=== PATIENT | female | born 1955 | race Caucasian/White ===

== ENCOUNTER 2017-10-06 03:26 | Emergency (ER) | payer MEDICARE ==
[2017-10-06] MEDS ORDERED: ROPINIROLE HCL 2 MG TABLET PO ONE (03:56)
[2017-10-06] MEDS ORDERED: NORMAL SALINE 1000 ML 1,000 ML IV ONE (03:56)
--- NOTE | 2017-10-06 03:57 | ER Document Report ---
ED General - General TRAVEL OUTSIDE OF THE U.S. IN LAST 30 DAYS: No <FLORENCIA GARDNER - Last Filed: 10/06/17 06:30> <CAR NUNN - Last Filed: 10/09/17 11:53> - General Chief Complaint: High Blood Sugar Stated Complaint: BLOOD SUGAR PROBLEMS Time Seen by Provider: 10/06/17 03:46 Notes: Patient is a 62 year old female that comes to the ED by EMS for chief complaint of hyperglycemia, feeling unsteady, and being out of her medications. She states she just got here 3 days ago from [place], moved here to be close to her son, she cannot find her medication bag, she states she has been using her insulin in her carry-on bag but now she is out of that too. She denies vomiting but she does report nausea. She denies chest pain, shortness of breath , headache. Past medical history includes type 1 diabetes, lupus, neuropathy, GERD, RLS. (FLORENCIA GARDNER) - Related Data Allergies/Adverse Reactions: Hymenoptera Allergenic Extract [From Venomil Honey Bee Venom] Allergy (Severe, Verified 09/17/14 02:30) Anaphylaxis cefuroxime axetil [From Ceftin] Allergy (Intermediate, Verified 09/17/14 02:30) Hives ciprofloxacin [From Cipro] Allergy (Mild, Verified 09/17/14 02:30) Hives ciprofloxacin HCl [From Cipro] Allergy (Mild, Verified 09/17/14 02:30) Hives latex [Latex] Allergy (Mild, Verified 09/17/14 02:30) Hives Past Medical History - General Information source: Patient - Social History Smoking Status: Never Smoker Chew tobacco use (# tins/day): No Frequency of alcohol use: None Drug Abuse: None Lives with: Family Family History: Reviewed & Not Pertinent Patient has suicidal ideation: No Patient has homicidal ideation: No - Past Medical History Cardiac Medical History: Reports: Hx Hypertension Endocrine Medical History: Reports: 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 Renal/ Medical History: Denies: Hx Peritoneal Dialysis GI Medical History: Reports: Hx Irritable Bowel Past Surgical History: Reports: Hx Abdominal Surgery, Hx Appendectomy, Hx Cholecystectomy, Hx Orthopedic Surgery - Right total knee replacement, left chest Port-A-Cath - Immunizations Hx Pneumococcal Vaccination: 02/20/12 <FLORENCIA GARDNER - Last Filed: 10/06/17 06:30> Review of Systems - Review of Systems Constitutional: See HPI EENT: No symptoms reported Cardiovascular: No symptoms reported Respiratory: No symptoms reported Gastrointestinal: See HPI Genitourinary: No symptoms reported Female Genitourinary: No symptoms reported Musculoskeletal: No symptoms reported Skin: No symptoms reported Hematologic/Lymphatic: No symptoms reported Neurological/Psychological: See HPI <FLORENCIA GARDNER - Last Filed: 10/06/17 06:30> Physical Exam <FLORENCIA GARDNER - Last Filed: 10/06/17 06:30> <CAR NUNN - Last Filed: 10/09/17 11:53> - Vital signs Vitals: Resp 14 10/06/17 05:39 - Notes Notes: GENERAL: Alert, interacts well. Very frail HEAD: Normocephalic, atraumatic. EYES: Pupils equal, round, and reactive to light. Extraocular movements intact. ENT: Oral mucosa moist, tongue midline. [Nares patent, no nasal septal hematoma , TM's intact.] NECK: Full range of motion. Supple. Trachea midline. LUNGS: Clear to auscultation bilaterally, no wheezes, rales, or rhonchi. No respiratory distress. HEART: Regular rate and rhythm. No murmur ABDOMEN: Soft, non-tender. Non-distended. Bowel sounds present in all 4 quadrants. EXTREMITIES: Moves all 4 extremities spontaneously. No edema, normal radial and dorsalis pedis pulses bilaterally. No cyanosis. BACK: no cervical, thoracic, lumbar midline tenderness. No saddle anesthesia, normal distal neurovascular exam. NEUROLOGICAL: Alert and oriented x3. Normal speech. [cranial nerves II through XII grossly intact]. PSYCH: Normal affect, normal mood. SKIN: Warm, dry, normal turgor. No rashes or lesions noted. (FLORENCIA GARDNER) Course - Laboratory Result Diagrams: 10/06/17 03:39 10/06/17 03:39 <FLORENCIA GARDNER - Last Filed: 10/06/17 06:30> - Laboratory Result Diagrams: 10/06/17 03:39 10/06/17 03:39 <CAR NUNN - Last Filed: 10/09/17 11:53> - Re-evaluation Re-evalutation: Patient not tachycardic, not vomiting, she appears well other than appearing chronically frail. She is out of her medications. CBC generally unremarkable, CMP shows hyperglycemia but bicarbonate and anion gap are normal. Venous blood gas does not show acidosis. LFTs are mildly elevated, I discussed this with patient, she states this is the number range that they always are in. She has no abdominal pain on my exam. Patient given her Requip, IV fluids, insulin. Reevaluated patient, patient states she feels great now, no nausea, no lightheadedness, states she feels normal. Requesting relief. Requesting refills of her medications and referral to primary care. Has not provided a urine yet but no urinary symptoms, fever, vomiting. Normal abdominal exam, no CVA tenderness. Patient was given prescriptions, instructed close follow-up, discussed return precautions. Patient states satisfaction and agreement. ( FLORENCIA GARDNER) 10/09/17 11:53 [facility] pharmacy called for clarification of Requip and insulin prescription. Will make insulin sliding scale with meals. Explained pharmacy I do not know the patient's past medical history and cannot provide any further information about the dosing of the Requip. (CAR NUNN) - Vital Signs Vital signs: Temp Pulse Resp BP Pulse Ox 16 163/88 H 100 10/06/17 06:46 10/06/17 06:46 10/06/17 06:46 - Laboratory Laboratory results interpreted by me: 10/06/17 10/06/17 10/06/17 03:39 03:39 06:46 MCV 101 H Glucose 463 H* POC Glucose 278 H Calcium 7.9 L AST 43 H ALT 71 H Alkaline Phosphatase 140 H Total Protein 5.9 L Albumin 2.9 L Discharge <FLORENCIA GARDNER - Last Filed: 10/06/17 06:30> <CAR NUNN - Last Filed: 10/09/17 11:53> - Discharge Clinical Impression: Has run out of medications, Hyperglycemia due to type 1 diabetes mellitus Disposition: HOME, SELF-CARE Additional Instructions: Fill and take your medications as prescribed. Call and follow-up closely with primary care for additional evaluation and management. Return if you worsen including vomiting, dizziness, or any other concerning or worsening symptoms. Prescriptions: Gabapentin 300 mg PO QHS #30 capsule Insulin Aspart [Novolog Insulin 100 Unit/1 ml 10 ml] 0 unit SUBCUT .SLD SCALE # 10 ml Insulin Glargine,Hum.rec.anlog [Lantus Insulin Inj 300 Unit/3 ml Pen] 24 unit SUBCUT BID #10 ml Ropinirole HCl [Requip 2 Mg Tablet] 4 mg PO BID PRN #60 tablet PRN Reason: Referrals: LEAH NELSON MD [ACTIVE STAFF] - Follow up in 1 week LOULOU LAROSE MD [ACTIVE STAFF] - Follow up in 1 week
[2017-10-06 04:15] LABS: ABSOLUTE BASOPHILS # (AUTO) 0.1 10^3/uL (0.0-0.2); ABSOLUTE EOSINOPHILS # (AUTO) 0.1 10^3/uL (0.0-0.6); ABSOLUTE MONOCYTES (AUTO) 0.6 10^3/uL (0.1-1.4); ABSOLUTE NEUT (AUTO) 3.7 10^3/uL (1.7-8.2); BASOPHILS % (AUTO) 1.4 % (0-2); EOSINOPHILS % (AUTO) 1.6 % (0-6); HEMATOCRIT 39.5 % (36.0-47.0); HEMOGLOBIN 12.9 g/dL (12.0-15.5); LYMPHOCYTES % (AUTO) 30.7 % (13-45); MEAN CORPUSCULAR HEMOGLOBIN 33.1 pg (27.0-33.4); MEAN CORPUSCULAR HGB CONC 32.7 g/dL (32.0-36.0); MEAN CORPUSCULAR VOLUME 101 fl (80-97); MONOCYTES % (AUTO) 9.3 % (3-13); PLATELET COUNT 167 10^3/uL (150-450); RED CELL DISTRIBUTION WIDTH 13.7 % (11.5-14.0); TOTAL CELLS COUNTED % (AUTO) 100 %; WHITE BLOOD COUNT 6.4 10^3/uL (4.0-10.5)
[2017-10-06 04:19] LABS: ALANINE AMINOTRANSFERASE 71 U/L (9-52); ALBUMIN 2.9 g/dL (3.5-5.0); ALKALINE PHOSPHATASE 140 U/L (38-126); ANION GAP 9 (5-19); ASPARTATE AMINO TRANSFERASE 43 U/L (14-36); BILIRUBIN,DIRECT 0.3 mg/dL (0.0-0.4); BILIRUBIN,TOTAL 1.3 mg/dL (0.2-1.3); BLOOD UREA NITROGEN 12 mg/dL (7-20); CALCIUM 7.9 mg/dL (8.4-10.2); CARBON DIOXIDE 25 mmol/L (22-30); CHLORIDE 105 mmol/L (98-107); POTASSIUM 4.3 mmol/L (3.6-5.0); SODIUM 138.7 mmol/L (137-145); TOTAL PROTEIN 5.9 g/dL (6.3-8.2)
[2017-10-06 04:30] LABS: GLUCOSE 463 mg/dL (75-110)
[2017-10-06] MEDS ORDERED: INSULIN REG, HUMAN 100 UNIT/ML 3 ML VIAL (PYX) SUBCUT ONE (04:40)
[2017-10-06 04:44] LABS: VENOUS BLOOD BASE EXCESS -4.5 mmol/L; VENOUS BLOOD HCO3 21.2 mmol/L (20-32); VENOUS BLOOD PCO2 41.4 mmHg (35-63); VENOUS BLOOD PH 7.33 (7.30-7.42)
[2017-10-06] MEDS ORDERED: ROPINIROLE HCL 2 MG TABLET ONE (05:33)
[2017-10-06 06:49] VITALS: BP 163/88
== END 2017-10-06 06:55 | disposition home or self-care (01) ==
LOC: ER 03:26
DX: E10.65 Type 1 diabetes mellitus with hyperglycemia (principal); T38.3X6A Underdosing of insulin and oral hypoglycemic [antidiabetic] drugs, initial encounter; E10.40 Type 1 diabetes mellitus with diabetic neuropathy, unspecified; T42.6X6A Underdosing of other antiepileptic and sedative-hypnotic drugs, initial encounter; G25.81 Restless legs syndrome; T42.8X6A Underdosing of antiparkinsonism drugs and other central muscle-tone depressants, initial encounter; Z91.128 Patient's intentional underdosing of medication regimen for other reason; Z91.14 Patient's other noncompliance with medication regimen; R11.0 Nausea; R79.89 Other specified abnormal findings of blood chemistry; Z88.1 Allergy status to other antibiotic agents; Z91.040 Latex allergy status; Z87.892 Personal history of anaphylaxis; Z90.410 Acquired total absence of pancreas
CPT/HCPCS: 99284; 96360; 36415; 82962; 85025; 80053; 82803; A9270 ×2; J7030; J1815

== ENCOUNTER 2017-11-16 14:50 | Emergency (ER) | payer MEDICARE ==
[2017-11-16] MEDS ORDERED: FUROSEMIDE 40 MG TABLET PO ONE (15:40)
--- NOTE | 2017-11-16 15:47 | ER Document Report ---
ED Medical Screen (RME) - General TRAVEL OUTSIDE OF THE U.S. IN LAST 30 DAYS: No - General Chief Complaint: High Blood Sugar Stated Complaint: SWELLING Time Seen by Provider: 11/16/17 15:39 Notes: 62 years old female with history of congestive heart failure, on torsemide, has not been taking for a week, started swelling up over the lower extremity had some difficulty in breathing and coughing on and off. No chest pain. She also been constipated for the last several days. Nauseous no vomiting. Has a long history of congestive heart failure, pancreatic transplant, sphincter of Oddi dysfunction On examination-bilateral lower lobe inspiratory crackles were heard, bilateral lower leg edema left is more than the right (JENNIFER STEVE) - Related Data Allergies/Adverse Reactions: Hymenoptera Allergenic Extract [From Venomil Honey Bee Venom] Allergy (Severe, Verified 11/16/17 14:52) Anaphylaxis cefuroxime axetil [From Ceftin] Allergy (Intermediate, Verified 11/16/17 14:52) Hives ciprofloxacin [From Cipro] Allergy (Mild, Verified 11/16/17 14:52) Hives ciprofloxacin HCl [From Cipro] Allergy (Mild, Verified 11/16/17 14:52) Hives latex [Latex] Allergy (Mild, Verified 11/16/17 14:52) Hives Past Medical History - Social History Chew tobacco use (# tins/day): No Frequency of alcohol use: recovery x 27 yrs Drug Abuse: None - Past Medical History Cardiac Medical History: Reports: Hx Hypertension Endocrine Medical History: Reports: 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, Hx Diabetes Mellitus Type 2 Renal/ Medical History: Denies: Hx Peritoneal Dialysis GI Medical History: Reports: Hx Irritable Bowel Past Surgical History: Reports: Hx Abdominal Surgery, Hx Appendectomy, Hx Cholecystectomy, Hx Orthopedic Surgery - Right total knee replacement, left chest Port-A-Cath - Vital signs Vitals: Temp Pulse Resp BP Pulse Ox 98.1 F 80 18 178/99 H 97 11/16/17 15:05 11/16/17 15:05 11/16/17 15:05 11/16/17 15:05 11/16/17 15:05 - Vital Signs Vital signs: Temp Pulse Resp BP Pulse Ox 98.1 F 80 18 178/99 H 97 11/16/17 15:05 11/16/17 15:05 11/16/17 15:05 11/16/17 15:05 11/16/17 15:05 - Laboratory Laboratory results interpreted by me: 11/16/17 15:29 POC Glucose 197 H
--- NOTE | 2017-11-16 16:14 | ER Document Report ---
ED General - General Chief Complaint: High Blood Sugar Stated Complaint: SWELLING Time Seen by Provider: 11/16/17 15:39 Mode of Arrival: Ambulatory Information source: Patient Notes: 62-year-old female with a history of congestive heart failure presents the emergency department with complaints of some difficulty breathing and increased swelling. Patient states that she is on toresmide. She states that she just moved here from [place]. She ran out of her medication a week ago and contacted her primary care physician in [place] for a refill. He declined to refill the medication as she is no longer living in [place]. Patient states that she has not followed up with a primary care physician yet in this area. She is having some shortness of breath but denies chest pain. She also denies calf pain. Patient has had blood clots in her L arm requiring anticoagulation. She says the anticoagulation was stopped a year ago. TRAVEL OUTSIDE OF THE [place] IN LAST 30 DAYS: No - HPI Onset: Last week Onset/Duration: Gradual Quality of pain: No pain Severity: Mild Associated symptoms: Shortness of breath Exacerbated by: Denies Relieved by: Denies Similar symptoms previously: Yes Recently seen / treated by doctor: No - Related Data Allergies/Adverse Reactions: Hymenoptera Allergenic Extract [From Venomil Honey Bee Venom] Allergy (Severe, Verified 11/16/17 14:52) Anaphylaxis cefuroxime axetil [From Ceftin] Allergy (Intermediate, Verified 11/16/17 14:52) Hives ciprofloxacin [From Cipro] Allergy (Mild, Verified 11/16/17 14:52) Hives ciprofloxacin HCl [From Cipro] Allergy (Mild, Verified 11/16/17 14:52) Hives latex [Latex] Allergy (Mild, Verified 11/16/17 14:52) Hives Past Medical History - Social History Smoking Status: Former Smoker Chew tobacco use (# tins/day): No Frequency of alcohol use: recovery x 27 yrs Drug Abuse: None Family History: Reviewed & Not Pertinent Patient has suicidal ideation: No Patient has homicidal ideation: No - Past Medical History Cardiac Medical History: Reports: Hx Hypertension Endocrine Medical History: Reports: 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, Hx Diabetes Mellitus Type 2 Renal/ Medical History: Denies: Hx Peritoneal Dialysis GI Medical History: Reports: Hx Irritable Bowel Past Surgical History: Reports: Hx Abdominal Surgery, Hx Appendectomy, Hx Cholecystectomy, Hx Orthopedic Surgery - Right total knee replacement, left chest Port-A-Cath - Immunizations Hx Pneumococcal Vaccination: 02/20/12 Review of Systems - Review of Systems Constitutional: No symptoms reported EENT: No symptoms reported Cardiovascular: No symptoms reported Respiratory: Short of breath Gastrointestinal: No symptoms reported Genitourinary: No symptoms reported Musculoskeletal: Leg swelling, Ankle swelling Skin: No symptoms reported Neurological/Psychological: No symptoms reported -: Yes All other systems reviewed and negative Physical Exam - Vital signs Vitals: Temp Pulse Resp BP Pulse Ox 98.1 F 80 18 178/99 H 97 11/16/17 15:05 11/16/17 15:05 11/16/17 15:05 11/16/17 15:05 11/16/17 15:05 - Notes Notes: PHYSICAL EXAMINATION: GENERAL: Well-appearing, well-nourished and in no acute distress. HEAD: Atraumatic, normocephalic. EYES: Pupils equal round and reactive to light, extraocular movements intact, conjunctiva are normal. ENT: Nares patent, oropharynx clear without exudates. Moist mucous membranes. NECK: Normal range of motion, supple without lymphadenopathy LUNGS: Crackles bilaterally. No wheezing. HEART: Regular rate and rhythm without murmurs ABDOMEN: Soft, nontender, nondistended abdomen. No guarding, no rebound. No masses appreciated. Female : deferred Musculoskeletal: Normal range of motion, 2+ pitting edema. NEUROLOGICAL: Cranial nerves grossly intact. Normal speech, normal gait. Normal sensory, motor exams PSYCH: Normal mood, normal affect. SKIN: Warm, Dry, normal turgor, no rashes or lesions noted. Course - Re-evaluation Re-evalutation: 11/16/17 18:00 With patient's recent travel from [place], hx of blood clots in her L arm, and shortness of breath, will rule out PE. CT chest ordered. 11/16/17 18:39 CT done. No PE, pneumonia, or effusions. Patient feeling better after getting furosemide in the ED. Has been urinating. Patient feels comfortable with discharge home. I will give her a rx for toresmide. She says she takes 20mg BID. I will give her a weeks supply. She was instructed to follow up with a primary care physician or chemical production machine operator for future refills. I provided referrals for her. I instructed her to return for chest pain or worsening symptoms. 11/16/17 18:45 - Vital Signs Vital signs: Temp Pulse Resp BP Pulse Ox 98.1 F 80 19 178/99 H 100 11/16/17 15:05 11/16/17 15:05 11/16/17 16:05 11/16/17 15:05 11/16/17 16:05 - Laboratory Result Diagrams: 11/16/17 16:40 11/16/17 16:40 Laboratory results interpreted by me: 11/16/17 11/16/17 11/16/17 15:29 15:50 16:40 RBC 3.55 L Hct 35.5 L MCV 100 H MCH 34.0 H Sodium Carbon Dioxide Anion Gap Creatinine Glucose POC Glucose 197 H AST ALT Alkaline Phosphatase NT-Pro-B Natriuret Pep Total Protein Albumin Urine Glucose (UA) 150 H Urine Nitrite POSITIVE H Urine Urobilinogen 2.0 H Ur Leukocyte Esterase TRACE H 11/16/17 11/16/17 16:40 16:40 RBC Hct MCV MCH Sodium 136.6 L Carbon Dioxide 31 H Anion Gap 4 L Creatinine 0.42 L Glucose 139 H POC Glucose AST 39 H ALT 54 H Alkaline Phosphatase 130 H NT-Pro-B Natriuret Pep 1050 H Total Protein 5.7 L Albumin 2.9 L Urine Glucose (UA) Urine Nitrite Urine Urobilinogen Ur Leukocyte Esterase Discharge - Discharge Clinical Impression: Shortness of breath Disposition: HOME, SELF-CARE Instructions: Dyspnea, Nonspecific ([facility]) Prescriptions: Torsemide [Demadex 20 mg Tablet] 20 mg PO BID 7 Days #14 tablet Referrals: ANNIKA ALFONSO MD [ACTIVE STAFF] - Follow up as needed JANETH TAVERA MD [ACTIVE STAFF] - Follow up as needed
--- NOTE | 2017-11-16 16:23 | RADIOLOGY REPORT (SQ) ---
EXAM DESCRIPTION: CHEST 2 VIEWS COMPLETED DATE/TIME: 11/16/2017 4:15 pm REASON FOR STUDY: chf COMPARISON: 09/17/2014. EXAM PARAMETERS: NUMBER OF VIEWS: two views TECHNIQUE: Digital Frontal and Lateral radiographic views of the chest acquired. RADIATION DOSE: NA LIMITATIONS: none FINDINGS: LUNGS AND PLEURA: No opacities, masses or pneumothorax. No pleural effusion. MEDIASTINUM AND HILAR STRUCTURES: No masses or contour abnormalities. HEART AND VASCULAR STRUCTURES: Heart normal size. No evidence for failure. BONES: No acute findings. HARDWARE: Vascular access port. OTHER: No other significant finding. IMPRESSION: NO ACUTE RADIOGRAPHIC FINDING IN THE CHEST. TECHNICAL DOCUMENTATION: JOB ID: [id number] [employer]- All Rights Reserved Reading location - IP/workstation name: [email or web address]
[2017-11-16 16:44] LABS: APPEARANCE,URINE SLIGHTLY-CLOUDY; BILIRUBIN,URINE NEGATIVE (NEGATIVE); COLOR,URINE YELLOW; GLUCOSE, URINE 150 mg/dL (NEGATIVE); KETONES,URINE NEGATIVE (NEGATIVE); LEUKOCYTE ESTERASE,URINE TRACE (NEGATIVE); NITRITE,URINE POSITIVE (NEGATIVE); PROTEIN,URINE NEGATIVE (NEGATIVE); URINE SPECIFIC GRAVITY 1.019
[2017-11-16 16:56] LABS: ABSOLUTE BASOPHILS # (AUTO) 0.1 10^3/uL (0.0-0.2); ABSOLUTE EOSINOPHILS # (AUTO) 0.1 10^3/uL (0.0-0.6); ABSOLUTE MONOCYTES (AUTO) 0.5 10^3/uL (0.1-1.4); ABSOLUTE NEUT (AUTO) 3.1 10^3/uL (1.7-8.2); BASOPHILS % (AUTO) 1.4 % (0-2); EOSINOPHILS % (AUTO) 1.6 % (0-6); HEMATOCRIT 35.5 % (36.0-47.0); HEMOGLOBIN 12.1 g/dL (12.0-15.5); LYMPHOCYTES % (AUTO) 34.2 % (13-45); MEAN CORPUSCULAR HGB CONC 34.1 g/dL (32.0-36.0); MEAN CORPUSCULAR VOLUME 100 fl (80-97); MONOCYTES % (AUTO) 8.6 % (3-13); PLATELET COUNT 206 10^3/uL (150-450); RED BLOOD COUNT 3.55 10^6/uL (3.72-5.28); RED CELL DISTRIBUTION WIDTH 13.5 % (11.5-14.0); SEGMENTED NEUTROPHILS % (AUTO) 54.2 % (42-78); TOTAL CELLS COUNTED % (AUTO) 100 %; WHITE BLOOD COUNT 5.8 10^3/uL (4.0-10.5)
[2017-11-16 17:14] LABS: ALANINE AMINOTRANSFERASE 54 U/L (9-52); ALBUMIN 2.9 g/dL (3.5-5.0); ALKALINE PHOSPHATASE 130 U/L (38-126); ASPARTATE AMINO TRANSFERASE 39 U/L (14-36); BILIRUBIN,DIRECT 0.4 mg/dL (0.0-0.4); BILIRUBIN,TOTAL 1.2 mg/dL (0.2-1.3); BLOOD UREA NITROGEN 9 mg/dL (7-20); CALCIUM 8.5 mg/dL (8.4-10.2); GLUCOSE 139 mg/dL (75-110); POTASSIUM 4.4 mmol/L (3.6-5.0); TOTAL PROTEIN 5.7 g/dL (6.3-8.2)
[2017-11-16 17:20] LABS: CARBON DIOXIDE 31 mmol/L (22-30); CHLORIDE 102 mmol/L (98-107); SODIUM 136.6 mmol/L (137-145)
[2017-11-16 17:24] LABS: ANION GAP 4 (5-19)
--- NOTE | 2017-11-16 18:25 | RADIOLOGY REPORT (SQ) ---
EXAM DESCRIPTION: CTA CHEST COMPLETED DATE/TIME: 11/16/2017 6:12 pm REASON FOR STUDY: shortness of breath COMPARISON: Chest radiograph 11/16/[address] abdomen 09/17/2014 TECHNIQUE: CT scan of the chest performed using helical scanning technique with dynamic intravenous contrast injection. Images reviewed with lung, soft tissue and bone windows. Reconstructed coronal and sagittal MPR images reviewed. Additional 3 dimensional post-processing performed to develop Maximal Intensity Projection images (AL P). All images stored on PACS. All CT scanners at this facility use dose modulation, iterative reconstruction, and/or weight based d osing when appropriate to reduce radiation dose to as low as reasonably achievable (ALARA). [facility]: Dose Right [facility]: CareDose [facility]: Dose Right [facility]: Teradose 4D [facility]: [employer] CONTRAST TYPE AND DOSE: contrast/concentration: Isovue 350.00 mg/ml; Total Contrast Delivered: 66.0 ml; Total Saline Delivered: 75.0 ml Contrast bolus optimized for the pulmonary arteries. Not diagnostic for the aorta. RENAL FUNCTION: BUN 9; creatinine 0.42 RADIATION DOSE: CT Rad equipment meets quality standard of care and radiation dose reduction techniq ues were employed. CTDIvol: 6.6 - 14.3 mGy. DLP: 616 mGy-cm. . LIMITATIONS: None. FINDINGS: LUNGS AND PLEURA: No masses, infiltrates, or pneumothorax. No pleural effusions or pleura l calcifications. AORTA AND GREAT VESSELS: No aneurysm. Contrast bolus not optimized for the aorta. HEART: No pericardial effusion. Moderate to marked coronary artery calcifications. PULMONARY ARTERIES: No emboli visualized in the main pulmonary arteries or the segmental branches. HILAR AND MEDIASTINAL STRUCTURES: No identified masses or abnormal nodes. HARDWARE: None in the chest. UPPER ABDOMEN: Limited exam. Left hepatic lobe pneumobilia is similar to that seen on comparison rufino ging. The gallbladder and spleen are surgically absent. No acute findings. THYROID AND OTHER SOFT TISSUES: No masses. No adenopathy. BONES: No acute or significant finding. 3D MIPS: Confirm above findings. OTHER: No other significant finding. IMPRESSION: No pulmonary emboli. No evidence of acute cardiopulmonary abnormality. COMMENT: Quality ID # [id number]: Final reports with documentation of one or more dose reduction techniques (e.g., Automated exposure control, adjustment of the mA and/or kV according to patient size, use of iterative reconstruction technique) TECHNICAL DOCUMENTATION: JOB ID: [id number] [employer]- All Rights Reserved Reading location - IP/workstation name: [email or web address]
[2017-11-16 19:05] VITALS: BP 197/90
== END 2017-11-16 19:45 | disposition left against medical advice (07) ==
LOC: ER 14:50
DX: R06.02 Shortness of breath (principal); I10 Essential (primary) hypertension; E11.9 Type 2 diabetes mellitus without complications; Z87.891 Personal history of nicotine dependence; Z90.49 Acquired absence of other specified parts of digestive tract; Z96.651 Presence of right artificial knee joint; Z88.3 Allergy status to other anti-infective agents; Z91.040 Latex allergy status
CPT/HCPCS: 36591; 99284; 36415; 82962; 85025; 80053; 81001; 83880; 71046; 71275; A9270

== ENCOUNTER 2018-12-14 12:30 | Emergency (ER) | payer MEDICARE, MEDICAID ==
[2018-12-14] MEDS ORDERED: MORPHINE SULFATE 10 MG/ML INJ IV ONE ×2 (13:19→16:12)
--- NOTE | 2018-12-14 13:26 | ER Document Report ---
ED General - General Chief Complaint: Leg Swelling Stated Complaint: LEG SWELLING Time Seen by Provider: 12/14/18 13:11 TRAVEL OUTSIDE OF THE [place] IN LAST 30 DAYS: No - HPI Notes: Patient is a 63-year-old female who presents to the emergency department for evaluation of leg swelling. She has a complicated medical history, after a femur fracture became complicated by MRSA infection. She has had leg swelling in the past on the right, has been on Lasix for it. She states that normally that works, but over the last 2 weeks she is gained over 10 pounds, her leg edema has gotten worse, and she was sent in for further evaluation. She denies any chest pain or shortness of breath. No fevers or chills. She has pain and pressure in that leg that she rates a 3 out of 5. Nothing seems to make it bett er or worse. She really only got cleared to bear weight on her legs 2 to 3 days ago, and she is largely immobile. He states that her sugars are out of control, but that they always are. She states that since her pancreatomy they range from high to low regularly. - Related Data Allergies/Adverse Reactions: Hymenoptera Allergenic Extract [From Venomil Honey Bee Venom] Allergy (Severe, Verified 11/16/17 14:52) Anaphylaxis cefuroxime axetil [From Ceftin] Allergy (Intermediate, Verified 11/16/17 14:52) Hives ciprofloxacin [From Cipro] Allergy (Mild, Verified 11/16/17 14:52) Hives ciprofloxacin HCl [From Cipro] Allergy (Mild, Verified 11/16/17 14:52) Hives latex [Latex] Allergy (Mild, Verified 11/16/17 14:52) Hives Home Medications: Colace 100 mg twice daily as needed, Lasix 40 mg 1-1/2 tabs daily, Neurontin 300 mg twice daily, insulin glargine 15 units subcutaneously in the morning, Lantus 6 units in the evening, melatonin 3 mg at bedtime, MiraLAX daily as needed for constipation, mirtazapine 30 mg at bedtime, oxycodone 7/2 mg every 6 hours, potassium chloride 20 mEq daily, Prilosec 20 mg daily, Requip 2 mg 4 times a day, vancomycin IV daily, Zofran 4 mg as needed Past Medical History - General Information source: Patient, Outside Facility Records - Social History Smoking Status: Unknown if Ever Smoked Family History: Reviewed & Not Pertinent Patient has suicidal ideation: No Patient has homicidal ideation: No - Past Medical History Cardiac Medical History: Reports: Hx Hypertension Endocrine Medical History: Reports: 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 Renal/ Medical History: Denies: Hx Peritoneal Dialysis GI Medical History: Reports: Hx Irritable Bowel Musculoskeletal Medical History: Reports Hx Musculoskeletal Trauma, Reports Other - Restless legs Past Surgical History: Reports: Hx Abdominal Surgery, Hx Appendectomy, Hx Cholecystectomy, Hx Orthopedic Surgery - Right total knee replacement, left chest Port-A-Cath - Immunizations Hx Pneumococcal Vaccination: 02/20/12 Review of Systems - Review of Systems Constitutional: No symptoms reported EENT: No symptoms reported Cardiovascular: See HPI Respiratory: No symptoms reported Gastrointestinal: No symptoms reported Genitourinary: No symptoms reported Musculoskeletal: See HPI Skin: No symptoms reported Neurological/Psychological: No symptoms reported Physical Exam - Vital signs Vitals: Resp Pulse Ox 12 99 12/14/18 12:41 12/14/18 12:41 - Notes Notes: Is a very pleasant 63-year-old female. She is sitting upright in the bed, cooperative, pleasant with examiner. Vital signs reviewed, please refer to chart. Head is normocephalic, atraumatic. Pupils equal round, reactive to light. Neck is supple without meningismus. Heart is regular rate and rhythm with systolic murmur noted. Lungs are clear to auscultation bilaterally. Abdomen is soft, nontender, normoactive bowel sounds throughout. Extremities without cyanosis, clubbing. She has 4+ pitting edema on the right lower extremity up to the thigh, 2+ pitting edema pretibially on the left. Posterior calves are tender bilaterally. Peripheral pulses are equal. Skin is warm and dry. Patient is awake, alert, neurological exam is nonfocal. Course - Re-evaluation Re-evalutation: 12/14/18 13:26 Patient presents emergency department for evaluation of increased leg edema. She is not short of breath, but she does have a significant heart murmur, which she states is gotten worse over time. I am concerned about the possibility of heart failure being in etiology. Certainly, DVT would be in the differential in this patient who is nonmobile. Laboratory investigations and imaging ordered as noted, we will continue to monitor. 12/14/18 16:10 Laboratory investigations are ordered. Her chest x-ray shows nothing acute, and she has no respiratory distress. She does, however, seem to have a elevated proBNP and findings consistent with some congestive heart failure. She has absolutely no chest pain. She denies any difficulty breathing. Her troponin was undetectable. Patient is already on Lasix at home, she is given IV Lasix here. She stated that she did not have a significant history of heart failure, but her proBNP was over thousand in the past. Given her heart failure, I am inclined to start this diabetic patient on DIONISIO inhibitor as well. She is given low-dose lisinopril here, will send her home with a prescription for same. I believe she needs cardiology follow-up, but I do not think she meets any criteria to be inpatient at this time. She is already on IV antibiotics. She does not have a significant leukocytosis. She is follow-up with primary care next week, return to the ED with worsening. 12/14/18 16:15 - Vital Signs Vital signs: Temp Pulse Resp BP Pulse Ox 23 H 155/92 H 95 12/14/18 13:00 12/14/18 13:00 12/14/18 13:35 - Laboratory Result Diagrams: 12/14/18 12:52 12/14/18 12:52 Laboratory results interpreted by me: 12/14/18 12/14/18 12/14/18 12:52 12:52 12:52 RBC 3.29 L Hgb 9.9 L Hct 30.4 L RDW 16.7 H Sodium 136.1 L Creatinine 0.41 L Glucose 438 H* Calcium 8.2 L NT-Pro-B Natriuret Pep 3410 H Albumin 2.9 L Urine Glucose (UA) Ur Leukocyte Esterase 12/14/18 15:29 RBC Hgb Hct RDW Sodium Creatinine Glucose Calcium NT-Pro-B Natriuret Pep Albumin Urine Glucose (UA) >=500 H Ur Leukocyte Esterase SMALL H - Diagnostic Test Radiology reviewed: Image reviewed, Reports reviewed Radiology results interpreted by me: 12/14/18 16:13 Chest X-Ray 12/14/18 13:18 IMPRESSION: Cardiomegaly without acute abnormality of the lungs. - EKG Interpretation by Me Additional EKG results interpreted by me: 12/14/18 16:13 Chest X-Ray 12/14/18 13:18 IMPRESSION: Cardiomegaly without acute abnormality of the lungs. Discharge - Discharge Clinical Impression: Edema, Hyperglycemia due to type 1 diabetes mellitus Congestive heart failure (CHF) Qualifiers: Heart failure type: unspecified Heart failure chronicity: acute on chronic Qualified Code(s): I50.9 - Heart failure, unspecified Condition: Stable Disposition: REHAB FACILITY Instructions: Congestive Heart Failure ([facility]), Edema, Peripheral ([facility]) Additional Instructions: Your blood work does show signs of some acute congestive heart failure. There is no signs of significant acute damage to your heart. You are given a dose of IV Lasix here, you are to continue your Lasix at home. Continue antibiotics. Doppler shows no signs of blood clot in either leg at this time. Given your CHF and diabetes, you are being started on lisinopril. Please take this as prescribed daily. We recommend you follow-up with cardiology. This should be done in the next 1 to 2 weeks. If you develop chest pain, shortness of breath, or any other new or concerning symptoms, please return immediately to the emergency department for evaluation.
[2018-12-14 13:30] LABS: ABSOLUTE BASOPHILS # (AUTO) 0.1 10^3/uL (0.0-0.2); ABSOLUTE LYMPHOCYTES (AUTO) 2.6 10^3/uL (0.5-4.7); ABSOLUTE MONOCYTES (AUTO) 0.5 10^3/uL (0.1-1.4); TOTAL CELLS COUNTED % (AUTO) 100 %
[2018-12-14 13:32] LABS: ABSOLUTE EOSINOPHILS # (AUTO) 0.2 10^3/uL (0.0-0.6); ABSOLUTE NEUT (AUTO) 2.9 10^3/uL (1.7-8.2); BASOPHILS % (AUTO) 1.3 % (0-2); EOSINOPHILS % (AUTO) 3.2 % (0-6); HEMATOCRIT 30.4 % (36.0-47.0); HEMOGLOBIN 9.9 g/dL (12.0-15.5); LYMPHOCYTES % (AUTO) 41.5 % (13-45); MEAN CORPUSCULAR HEMOGLOBIN 30.2 pg (27.0-33.4); MEAN CORPUSCULAR HGB CONC 32.7 g/dL (32.0-36.0); MEAN CORPUSCULAR VOLUME 92 fl (80-97); MONOCYTES % (AUTO) 7.5 % (3-13); PLATELET COUNT 271 10^3/uL (150-450); RED BLOOD COUNT 3.29 10^6/uL (3.72-5.28); RED CELL DISTRIBUTION WIDTH 16.7 % (11.5-14.0); SEGMENTED NEUTROPHILS % (AUTO) 46.5 % (42-78); WHITE BLOOD COUNT 6.3 10^3/uL (4.0-10.5)
--- NOTE | 2018-12-14 13:39 | RADIOLOGY REPORT (SQ) ---
EXAM DESCRIPTION: CHEST SINGLE VIEW COMPLETED DATE/TIME: 12/14/2018 1:28 pm REASON FOR STUDY: edema COMPARISON: 11/16/2017 EXAM PARAMETERS: NUMBER OF VIEWS: One view. TECHNIQUE: Single frontal radiographic view of the chest acquired. RADIATION DOSE: NA LIMITATIONS: None. FINDINGS: LUNGS AND PLEURA: No opacities, masses or pneumothorax. No pleural effusion. MEDIASTINUM AND HILAR STRUCTURES: No masses. Contour normal. HEART AND VASCULAR STRUCTURES: Cardiomegaly. BONES: No acute findings. HARDWARE: None in the chest. OTHER: Right chest port catheter. IMPRESSION: Cardiomegaly without acute abnormality of the lungs. TECHNICAL DOCUMENTATION: JOB ID: [id number] [employer]- All Rights Reserved Reading location - IP/workstation name: [email or web address]
[2018-12-14 13:47] LABS: ALBUMIN 2.9 g/dL (3.5-5.0); ALKALINE PHOSPHATASE 124 U/L (38-126); ANION GAP 5 (5-19); ASPARTATE AMINO TRANSFERASE 18 U/L (14-36); BILIRUBIN,DIRECT 0.1 mg/dL (0.0-0.4); BILIRUBIN,TOTAL 0.6 mg/dL (0.2-1.3); BLOOD UREA NITROGEN 14 mg/dL (7-20); CALCIUM 8.2 mg/dL (8.4-10.2); CARBON DIOXIDE 30 mmol/L (22-30); CHLORIDE 101 mmol/L (98-107); CREATINE KINASE 33 U/L (30-135); POTASSIUM 4.8 mmol/L (3.6-5.0); TOTAL PROTEIN 6.4 g/dL (6.3-8.2)
[2018-12-14 13:53] LABS: ANISOCYTOSIS 1+; HYPOCHROMASIA 1+; PLATELET COMMENT ADEQUATE; TARGET CELLS SLIGHT
[2018-12-14 13:58] LABS: NT PRO BNP 3410 pg/mL (<125)
[2018-12-14 14:00] LABS: GLUCOSE 438 mg/dL (75-110)
[2018-12-14 14:01] LABS: TROPONIN I < 0.012 ng/mL
[2018-12-14] MEDS ORDERED: FUROSEMIDE INJ/PF 40 MG/4 ML SDV IV ONE (14:49)
[2018-12-14] MEDS ORDERED: INSULIN REG, HUMAN 100 UNIT/ML 3 ML VIAL (PYX) IV ONE (14:50)
[2018-12-14 15:51] LABS: APPEARANCE,URINE SLIGHTLY-CLOUDY; BILIRUBIN,URINE NEGATIVE (NEGATIVE); COLOR,URINE YELLOW; GLUCOSE, URINE >=500 mg/dL (NEGATIVE); KETONES,URINE NEGATIVE (NEGATIVE); LEUKOCYTE ESTERASE,URINE SMALL (NEGATIVE); NITRITE,URINE NEGATIVE (NEGATIVE); PROTEIN,URINE NEGATIVE (NEGATIVE); URINE SPECIFIC GRAVITY 1.021; UROBILINOGEN,URINE NEGATIVE mg/dL (<2.0)
[2018-12-14] MEDS ORDERED: LISINOPRIL 10 MG TABLET PO ONE (16:09)
--- NOTE | 2018-12-14 18:22 | VASCULAR PRELIM REPORT ---
Provider Note Provider Note: Bilateral study negative for DVT. Quite impressive leg edema noted on ultrasound, this is likley evident to physical exam.
--- NOTE | 2018-12-14 18:25 | XCELERA REPORT ---
[address] [address] Lower Extremity Venous Evaluation Procedure: Color flow and duplex imaging bilaterally of the veins of the lower extremities as well as the Common Femoral veins. Right Sided Venous Evaluation Lucent,spaces in subcutaneous tissues of the leg, suggesting edema, noted. Normal vessel filling wall to wall, compression and augmentation as well as Colour flow down to the infrageniculate veins. Left Sided Venous Evaluation Lucent,spaces in subcutaneous tissues of the leg, suggesting edema, noted. Normal vessel filling wall to wall, compression and augmentation as well as Colour flow down to the infrageniculate veins. Interpretation Summary No duplex evidence of DVT or obstruction in the bilateral lower extremities. Bilateral subcutaneous edema noted, on ultrasound. Name: KARLA PALAFOX Age: 63 yrs Gender: Female : 1955 Patient Status: Emergency Patient Location: ER Study Date: 12/14/2018 03:41 PM Reason For Study: edema, eval for DVT Ordering Physician: GOYO MUÑIZ Performed By: Melba Watt : GOYO MUÑIZ > Matthew Treadwell
[2018-12-14 19:55] VITALS: BP 114/75
--- NOTE | 2018-12-14 19:57 | ER Document Report ---
Doctor's Note Notes: 12/14/18 19 I evaluated this patient prior to discharge. She is mildly somnolent likely from the morphine she has received. She is oriented to person place and time. She recalls conversations with Dr. Grant earlier and does not appear acutely confused. She is able to tell me her medication regimens at home for her diabetes. Her glucose is improved at 111. Patient at this point is stable for discharge home and outpatient management
--- NOTE | 2018-12-14 21:30 | EKG REPORT ---
SEVERITY:- ABNORMAL ECG - SINUS RHYTHM RUN OF VENTRICULAR PREMATURE COMPLEXES ABERRANT COMPLEX, POSSIBLY SUPRAVENTRICULAR PROLONGED QT INTERVAL : Confirmed by: Vita Phillips MD 14-Dec-2018 21:29:42
== END 2018-12-14 20:05 ==
LOC: ER 12:30
DX: R60.0 Localized edema (principal); I11.0 Hypertensive heart disease with heart failure; I50.9 Heart failure, unspecified; E10.65 Type 1 diabetes mellitus with hyperglycemia
CPT/HCPCS: 93005; 96376; 99284; 96374; 96375; 36415; 82962; 82550; 85025; 80053; 81001; 84484; 83880; 93970 ×2; 71045; 93010; J1940; J2270; A9270 ×2; J1815

== ENCOUNTER 2018-12-26 12:38 | Emergency (ER) | payer MEDICARE, MEDICAID ==
[2018-12-26 13:23] VITALS: BP 124/80
[2018-12-26 13:45] LABS: ABSOLUTE BASOPHILS # (AUTO) 0.1 10^3/uL (0.0-0.2); ABSOLUTE EOSINOPHILS # (AUTO) 0.2 10^3/uL (0.0-0.6); ABSOLUTE LYMPHOCYTES (AUTO) 2.8 10^3/uL (0.5-4.7); ABSOLUTE MONOCYTES (AUTO) 0.5 10^3/uL (0.1-1.4); ABSOLUTE NEUT (AUTO) 1.9 10^3/uL (1.7-8.2); BASOPHILS % (AUTO) 1.9 % (0-2); EOSINOPHILS % (AUTO) 2.9 % (0-6); HEMATOCRIT 32.4 % (36.0-47.0); HEMOGLOBIN 10.8 g/dL (12.0-15.5); LYMPHOCYTES % (AUTO) 50.4 % (13-45); MEAN CORPUSCULAR HEMOGLOBIN 29.8 pg (27.0-33.4); MEAN CORPUSCULAR HGB CONC 33.2 g/dL (32.0-36.0); MEAN CORPUSCULAR VOLUME 90 fl (80-97); MONOCYTES % (AUTO) 9.6 % (3-13); PLATELET COUNT 235 10^3/uL (150-450); RED BLOOD COUNT 3.61 10^6/uL (3.72-5.28); RED CELL DISTRIBUTION WIDTH 15.8 % (11.5-14.0); SEGMENTED NEUTROPHILS % (AUTO) 35.2 % (42-78); TOTAL CELLS COUNTED % (AUTO) 100 %; WHITE BLOOD COUNT 5.5 10^3/uL (4.0-10.5)
[2018-12-26 13:53] LABS: ALBUMIN 3.2 g/dL (3.5-5.0); ALKALINE PHOSPHATASE 87 U/L (38-126); ANION GAP 5 (5-19); ASPARTATE AMINO TRANSFERASE 15 U/L (14-36); BILIRUBIN,TOTAL 0.8 mg/dL (0.2-1.3); BLOOD UREA NITROGEN 15 mg/dL (7-20); CALCIUM 9.1 mg/dL (8.4-10.2); CARBON DIOXIDE 33 mmol/L (22-30); CHLORIDE 99 mmol/L (98-107); GLUCOSE 108 mg/dL (75-110); POTASSIUM 4.1 mmol/L (3.6-5.0); TOTAL PROTEIN 6.6 g/dL (6.3-8.2)
[2018-12-26 14:20] LABS: ANISOCYTOSIS SLIGHT; BURR CELLS SLIGHT; HOWELL-JOLLY BODIES PRESENT; PLATELET LARGE PRESENT; POIKILOCYTOSIS SLIGHT; SCHISTOCYTES SLIGHT; TARGET CELLS SLIGHT
[2018-12-26 14:21] LABS: PLATELET COMMENT ADEQUATE
[2018-12-26] MEDS ORDERED: ONDANSETRON HCL INJ/PF 4 MG/2 ML SDV IV ONE (14:23)
--- NOTE | 2018-12-26 15:01 | ER Document Report ---
ED Medical Screen (RME) - General Chief Complaint: Abnormal Lab Results Stated Complaint: DIZZINESS/NAUSEA Time Seen by Provider: 12/26/18 14:57 Mode of Arrival: Medic Information source: Patient Notes: 63-year-old female presents to ED via EMS from [facility] for bilateral abdominal pain. She is getting vancomycin for MRSA to the leg. She had low H&H at [facility] but her H&H has improved here at the hospital. Patient is alert and oriented states she is just so tired and fatigued. She was not having nausea and vomiting and received Zofran while in the emergency room. I have greeted and performed a rapid initial assessment of this patient. A comprehensive ED assessment and evaluation of the patient, analysis of test results and completion of medical decision making process will be conducted by an additional ED providers. TRAVEL OUTSIDE OF THE [place] IN LAST 30 DAYS: No - Related Data Allergies/Adverse Reactions: Hymenoptera Allergenic Extract [From Venomil Honey Bee Venom] Allergy (Severe, Verified 11/16/17 14:52) Anaphylaxis cefuroxime axetil [From Ceftin] Allergy (Intermediate, Verified 11/16/17 14:52) Hives ciprofloxacin [From Cipro] Allergy (Mild, Verified 11/16/17 14:52) Hives ciprofloxacin HCl [From Cipro] Allergy (Mild, Verified 11/16/17 14:52) Hives latex [Latex] Allergy (Mild, Verified 11/16/17 14:52) Hives ceftriaxone [From Rocephin] Allergy (Verified 12/26/18 13:33) diphenhydramine [From Benadryl] Allergy (Verified 12/26/18 13:33) haloperidol [From Haldol] Allergy (Verified 12/26/18 13:33) metoclopramide [From Reglan] Allergy (Verified 12/26/18 13:33) prochlorperazine [From Compazine] Allergy (Verified 12/26/18 13:33) bee stings Allergy (Uncoded 12/26/18 13:33) Home Medications: Amlodopine 5mg - 1 tab PO Daily. Gabapentin 300mg - 1 cap PO BID. Insulin Aspart 100 Units/ml. Lantus 100 Units/ml - 15 Units SUBCUT QAM. Lantus 100 Units/ml - 5 Units SUBCUT qDinner. Mirtazapine 30mg - 1 tab PO QHS. Omeprazole 20mg delayed release capsule - 1 cap PO Daily. Pancretipase 36,000 units-114,000 units-180,000 units delayed release capsule - 2 caps PO TIDMeals. Requip 2mg - 1 tab PO QID. Torsemide 20mg - 1 tab PO Daily. 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, Hx Diabetes Mellitus Type 2 Renal/ Medical History: Denies: Hx Peritoneal Dialysis GI Medical History: Reports: Hx Irritable Bowel Musculoskeltal Medical History: Reports Hx Musculoskeletal Trauma Past Surgical History: Reports: Hx Abdominal Surgery, Hx Appendectomy, Hx Cholecystectomy, Hx Orthopedic Surgery - Right total knee replacement, left chest Port-A-Cath Physical Exam - Vital signs Vitals: Temp Pulse Resp BP Pulse Ox 98.0 F 95 24 H 124/80 97 12/26/18 12:52 12/26/18 12:52 12/26/18 12:52 12/26/18 12:52 12/26/18 12:52 Course - Vital Signs Vital signs: Temp Pulse Resp BP Pulse Ox 98.0 F 95 24 H 124/80 97 12/26/18 12:52 12/26/18 12:52 12/26/18 12:52 12/26/18 12:52 12/26/18 12:52 - Laboratory Result Diagrams: 12/26/18 13:16 12/26/18 13:16 Laboratory results interpreted by me: 12/26/18 12/26/18 13:16 13:16 RBC 3.61 L Hgb 10.8 L Hct 32.4 L RDW 15.8 H Lymph % (Auto) 50.4 H Seg Neutrophils % 35.2 L Carbon Dioxide 33 H Creatinine 0.50 L Albumin 3.2 L Lipase < 10.0 L
[2018-12-26] MEDS ORDERED: NORMAL SALINE 1000 ML 1,000 ML IV ONE (15:03)
--- NOTE | 2018-12-26 15:18 | ER Document Report ---
ED General - General Chief Complaint: Abnormal Lab Results Stated Complaint: DIZZINESS/NAUSEA Time Seen by Provider: 12/26/18 14:57 Mode of Arrival: Medic TRAVEL OUTSIDE OF THE [place] IN LAST 30 DAYS: No - HPI Notes: 63-year-old female transported here from [facility] for evaluation of abdominal pain and constipation. Patient currently is receiving IV antibiotics at the [place] for cellulitis of lower extremity. No bowel movement in 3 days. She said some nausea but no vomiting. No fever, chills, or dysuria. Onset gradual over several days. Duration persistent. Quality dull aching and cramping. Location suprapubic. Radiation none. Precipitating factors constipation. Relieving factors none. Severity describes pain as 6/10 currently. Pertinent prior history: Multiple prior abdominal surgical procedures and history of small bowel obstruction. Chronic anemia. - Related Data Allergies/Adverse Reactions: Hymenoptera Allergenic Extract [From Venomil Honey Bee Venom] Allergy (Severe, Verified 11/16/17 14:52) Anaphylaxis cefuroxime axetil [From Ceftin] Allergy (Intermediate, Verified 11/16/17 14:52) Hives ciprofloxacin [From Cipro] Allergy (Mild, Verified 11/16/17 14:52) Hives ciprofloxacin HCl [From Cipro] Allergy (Mild, Verified 11/16/17 14:52) Hives latex [Latex] Allergy (Mild, Verified 11/16/17 14:52) Hives ceftriaxone [From Rocephin] Allergy (Verified 12/26/18 13:33) diphenhydramine [From Benadryl] Allergy (Verified 12/26/18 13:33) haloperidol [From Haldol] Allergy (Verified 12/26/18 13:33) metoclopramide [From Reglan] Allergy (Verified 12/26/18 13:33) prochlorperazine [From Compazine] Allergy (Verified 12/26/18 13:33) bee stings Allergy (Uncoded 12/26/18 13:33) Home Medications: Amlodopine 5mg - 1 tab PO Daily. Gabapentin 300mg - 1 cap PO BID. Insulin Aspart 100 Units/ml. Lantus 100 Units/ml - 15 Units SUBCUT QAM. Lantus 100 Units/ml - 5 Units SUBCUT qDinner. Mirtazapine 30mg - 1 tab PO QHS. Omeprazole 20mg delayed release capsule - 1 cap PO Daily. Pancretipase 36,000 units-114,000 units-180,000 units delayed release capsule - 2 caps PO T IDMeals. Requip 2mg - 1 tab PO QID. Torsemide 20mg - 1 tab PO Daily. 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 HENT: Negative for sore throat. Eyes: Negative for visual changes. Cardiovascular: Negative for chest pain. Respiratory: Negative for shortness of breath. Gastrointestinal: As per HPI. Genitourinary: Negative for dysuria. Musculoskeletal: Negative for back pain. Skin: Negative for rash. Neurological: Negative for headaches, weakness or numbness. 10 point ROS negative except as marked above and in HPI. Physical Exam - Vital signs Vitals: Temp Pulse Resp BP Pulse Ox 98.0 F 95 24 H 124/80 97 12/26/18 12:52 12/26/18 12:52 12/26/18 12:52 12/26/18 12:52 12/26/18 12:52 Notes: GENERAL: Elderly female who appears in mild discomfort. SKIN: Good turgor no rashes. HEAD: Normocephalic atraumatic. EYES: PERRLA. Conjunctivae and sclerae clear. EARS: CANALS AND TMS CLEAR. NOSE: CLEAR. MOUTH: Moist mucosa. Good dentition. No stridor or edema. No drooling. NECK: Supple. No masses or thyromegaly. No adenopathy. Carotids 2+ without bruits. No JVD. BACK: Symmetrical without tenderness. CHEST: Port-A-Cath right anterior chest wall. Respirations unlabored. Breath sounds clear and symmetrical. HEART: Regular rhythm. No murmur gallop or rub. ABDOMEN: Multiple surgical scars present. Soft with minimal suprapubic tenderness without masses, organomegaly or rebound. Bowel sounds normally ac tive. No bruits. GENITALIA: Patient is wearing a diaper. Deferred. EXTREMITIES: No edema. No calf tenderness. Cap refill less than 1.5 seconds. Dorsalis pedis and posterior tibial pulses 3+ and symmetrical. NEUROLOGICAL: GCS 15. Alert and oriented x3. Normal gait. Fluent speech. Cranial nerves II through XII intact. Sensorimotor and cerebellar normal. Normal tone. PSYCHIATRIC: Very flat affect. Course - Re-evaluation Re-evalutation: 12/26/18 15:25 Preliminary review of labs shows patient anemia has actually improved since recent prior visit. Her abdominal exam is relatively benign. She may simply be constipated or have a urinary tract infection. I am going to treat her symptomatically for the moment and obtain additional studies to include a urinalysis and acute abdominal series. 12/26/18 15:54 Patient has decided that she is now asymptomatic and feels that her symptoms are likely be due to constipation. She wishes to leave without completing urinalysis or x-ray of the abdomen. I discussed risks versus benefits of this approach. Patient is decided she wished to sign out AMA at this time. - Vital Signs Vital signs: Temp Pulse Resp BP Pulse Ox 98.0 F 95 24 H 124/80 97 12/26/18 12:52 12/26/18 12:52 12/26/18 12:52 12/26/18 12:52 12/26/18 12:52 - Laboratory Result Diagrams: 12/26/18 13:16 12/26/18 13:16 Laboratory results interpreted by me: 12/26/18 12/26/18 13:16 13:16 RBC 3.61 L Hgb 10.8 L Hct 32.4 L RDW 15.8 H Lymph % (Auto) 50.4 H Seg Neutrophils % 35.2 L Carbon Dioxide 33 H Creatinine 0.50 L Albumin 3.2 L Lipase < 10.0 L Discharge - Discharge Clinical Impression: Abdominal pain Qualifiers: Abdominal location: lower abdomen, unspecified Qualified Code(s): R10.30 - Lower abdominal pain, unspecified Condition: Stable Disposition: AGAINST MEDICAL ADVICE Instructions: Abdominal Pain ([facility]) Additional Instructions: Return to the emergency department as needed for new or worsening symptoms.
[2018-12-26] MEDS ORDERED: FENTANYL CITRATE INJ/PF 100 MCG/2 ML AMPUL IV PRN (15:22)
== END 2018-12-26 18:50 | disposition left against medical advice (07) ==
LOC: ER 12:38
DX: R10.30 Lower abdominal pain, unspecified (principal); R11.0 Nausea; L03.119 Cellulitis of unspecified part of limb; D64.9 Anemia, unspecified; I11.9 Hypertensive heart disease without heart failure; E10.9 Type 1 diabetes mellitus without complications; Z79.899 Other long term (current) drug therapy; Z87.19 Personal history of other diseases of the digestive system; Z91.030 Bee allergy status; Z88.1 Allergy status to other antibiotic agents; Z91.040 Latex allergy status; Z88.8 Allergy status to other drugs, medicaments and biological substances; Z90.49 Acquired absence of other specified parts of digestive tract; Z53.20 Procedure and treatment not carried out because of patient's decision for unspecified reasons
CPT/HCPCS: 99284; 96374; 86900; 86901; 36415; 86850; 82962; 83690; 85025; 80053; J2405